=== PATIENT | female | born 1945 | race Caucasian/White ===

== ENCOUNTER 2018-09-10 01:57 | Inpatient (IN) | payer MEDICARE ==
--- NOTE | 2018-09-05 16:27 | HISTORY AND PHYSICAL ---
DATE OF ADMISSION: September 10, 2018 IDENTIFICATION AND CHIEF COMPLAINT Gloria is a 73-year-old woman with chief complaint of right knee pain. HISTORY OF PRESENT ILLNESS Patient has a long-standing history of knee arthritis, progressively painful and debilitating, and refractory to conservative care. Surgery is indicated to relieve symptoms after failure of nonoperative measures. PAST MEDICAL HISTORY 1. Supraventricular tachycardia. 2. Some coronary artery disease. 3. Hypertension, well controlled on medication. 4. Sleep apnea, on CPAP. ALLERGIES CODEINE. CURRENT MEDICATIONS 1. Pioglitazone 30 mg p.o. q. day. 2. Metformin 700 mg p.o. q. day. 3. Estradiol 2 mg half tablet p.o. q.a.m. 4. Sertraline/hydrochlorothiazide 100 mg half tablet p.o. q.a.m. 5. Losartan/hydrochlorothiazide 100/25 one p.o. q. day. 6. Metoprolol ER 25 mg half tablet p.o. b.i.d. 7. Levoxyl 88 mcg p.o. q. day. 8. Tramadol as needed. 9. Simvastatin 40 mg p.o. q. day. 10. Trazodone 50 mg half tablet p.o. at bedtime. 11. Glyburide 1.25 mg as needed for elevated blood sugar. 12. Baby aspirin a day. PAST SURGICAL HISTORY 1. Tubal ligation. 2. Knee scope. 3. Hysterectomy. 4. Spinal fusion. 5. Shoulder repair. SOCIAL HISTORY Negative for tobacco and alcohol use. FAMILY HISTORY Notable for mother with cancer and in multiple relatives on that side. Father with heart failure. REVIEW OF SYSTEMS Otherwise negative. PHYSICAL EXAMINATION GENERAL: Healthy female. HEENT: Normocephalic, atraumatic. NECK: Supple. LUNGS: Clear. HEART: Regular. ABDOMEN: Soft. ORTHOPEDIC: Right knee has crepitus. Effusion is present. Stiff at end range. Gross stability is good. Extensor function intact. Skin is intact. Calves nontender. Neurovascular function intact. LABORATORY DATA Radiographs demonstrate end-stage knee arthritis. ASSESSMENT Right knee degenerative joint disease, progressively painful and debilitating, refractory to conservative. PLAN Per patient request, going to proceed with total knee arthroplasty. Nature of the procedure, risks, benefits, and nonoperative alternatives reviewed. Risks of the procedure include, but are not limited to , major medical or anesthetic complication, infection, neurovascular injury, blood transfusion, stiffness, scarring, fracture, tendon rupture, instability, implant loosening, migration, or failure, persistent or recurrent pain, need for additional surgery, and other unforeseen. She understands and wishes to proceed. Signed permit is placed in the chart. No guarantees are given or implied. EDDI
[2018-09-09 14:02] LABS: INR 1.05
[2018-09-10] VITALS (15 sets, daily range): BP systolic 105–156; BP diastolic 60–97
[~2018-09-10] VITALS: Ht 162.6 cm; Wt 112.5 kg
[~2018-09-10 01:57] MED LIST: ACET500T68 PO; ESTR2TAB26 PO; GLYB1.2524 PO; LEVO88TA43 PO; LOSA-54 PO; METF-51 PO; METO25TA93 PO; PIOG30TA71 PO; POTA20TA94 PO; ROPI0.2530 PO; SERT-184 PO; SIMV-54 PO; TRAM-420 PO; TRAZ50TA34 PO
[2018-09-10] MEDS ORDERED: LIDOCAINE/SOD BICARB 8.4% SYR ID ONE (06:30)
[2018-09-10] MEDS ORDERED: TRANEXAMIC AC 1000 MG/10ML SDV 1,000 MG in DEXTROSE 5% 50 ML BAG 50 ML IV ONE (06:30)
[2018-09-10] MEDS ORDERED: CELECOXIB 200 MG CAP PO ONE (06:30)
[2018-09-10] MEDS ORDERED: PREGABALIN 75 MG CAPSULE PO ONE (06:30)
[2018-09-10] MEDS ORDERED: ceFAZolin(*) 2GM/D5W 50ML 50 ML IVPB ONE (06:30)
[2018-09-10] MEDS ORDERED: NORMOSOL R SOLN(*) 1000 ML BAG 1,000 ML IV PRN ×2 (06:30→09:40)
[2018-09-10] MEDS ORDERED: FAMOTIDINE 20 MG TAB PO ONE (06:30)
[2018-09-10] MEDS ORDERED: cloNIDine EPIDUR INJ 100MCG/ML 40 MCG, ROPIVACAINE 0.5% 20 ML VIAL 25 ML, EPINEPHrine H... INJ ONE (06:30)
[2018-09-10] MEDS ORDERED: ACETAMINOPHEN 500 MG TAB PO ONE (06:30)
[2018-09-10] MEDS ORDERED: MIDAZOLAM 2 MG/2 ML VIAL IVP PRN (06:30)
[2018-09-10] MEDS ORDERED: PROPOFOL EMUL(*) 10MG/ML 20 ML 20 ML ONE (06:56)
[2018-09-10] MEDS ORDERED: LIDOCAINE MPF 1% 5 ML VIAL ONE (06:56)
[2018-09-10] MEDS ORDERED: fentaNYL CITR 100 MCG/2 ML AMP ONE (06:56)
[2018-09-10] MEDS ORDERED: ONDANSETRON 4 MG/2 ML VIAL ONE (06:56)
[2018-09-10] MEDS ORDERED: DEXAMETHASONE SOD 4 MG/ML VIAL ONE (06:56)
[2018-09-10] MEDS ORDERED: VANCOMYCIN 1 GM VIAL ONE (07:02)
[2018-09-10] MEDS ORDERED: KETAMINE HCL 200 MG/20 ML MDV ONE (07:03)
[2018-09-10] MEDS ORDERED: diphenhydrAMINE 25 MG CAP PO PRN (09:40)
[2018-09-10] MEDS ORDERED: diphenhydrAMINE 50 MG/ML VIAL IVP PRN (09:40)
[2018-09-10] MEDS ORDERED: FLUSH 10 ML SYR IVP PRN (09:40)
[2018-09-10] MEDS ORDERED: ZOLPIDEM TARTRATE 5 MG TAB PO PRN (09:40)
[2018-09-10] MEDS ORDERED: PROMETHAZINE 25 MG/ML 1 ML AMP IVP PRN (09:40)
[2018-09-10] MEDS ORDERED: BISACODYL 10 MG SUPP PR PRN (09:40)
[2018-09-10] MEDS ORDERED: BENZOCAINE/MENTHOL 1 EACH LOZG PO PRN (09:40)
[2018-09-10] MEDS ORDERED: ACETAMINOPHEN 325 MG TAB PO PRN (09:40)
--- NOTE | 2018-09-10 10:27 | RADIOLOGY IMAGING REPORT ---
[place] [facility] [place] NAME: Gloria Arredondo : 1945 MR: [id number] V: [id number] EXAM DATE: ORDERING PHYSICIAN: GINA JEREZ TECHNOLOGIST: Location: [facility] Patient: Gloria Arredondo : 1945 Visit/Account:[id number] Date of Sevice: 09/10/2018 KNEE LIMITED RIGHT COMPARISON: None. HISTORY: :POST RIGHT KNEE REPLACEMENT TECHNIQUE: 2 views were obtained. FINDINGS: BONES: Hardware components of a right total knee arthroplasty are situated in anatomic alignment wit hout evidence of loosening, acute fracture or other complication. SOFT TISSUES: There is air in the soft tissues related to the recent surgery. Skin graham are note d anteriorly. OTHER: Negative. IMPRESSION: Total right knee arthroplasty in anatomic alignment without complication, with recent postoperative c hanges. Report Dictated By: Greg Orlando at 09/10/2018 10:20 AM Report E-Signed By: Greg Orlando at 09/10/2018 10:23 AM WSN:[email or web address]
--- NOTE | 2018-09-10 11:07 | LEVENE TKA ---
EVENT DATE: September 10, 2018 SURGEON: Ruddy Milian MD ANESTHESIOLOGIST: [*] ANESTHESIA: General plus spinal. SIZING END BANDER: Ronak Rodriguez PA-C PREOPERATIVE DIAGNOSIS Right knee degenerative joint disease (DJD). POSTOPERATIVE DIAGNOSIS Right knee degenerative joint disease (DJD). PROCEDURE PERFORMED Right total knee arthroplasty. ESTIMATED BLOOD LOSS Minimal. DRAINS None. SPECIMENS None. COMPLICATIONS None apparent. TOURNIQUET TIME 49 minutes. IMPLANTS USED IN[employer] [place] Triathlon knee system, a three-way PS femur, a 4 standard tibial baseplate, a 31] mm universal symmetric all polyethylene patella button and an 11 mm PS tibial tray liner, polyethylene X3.. INDICATIONS Katharina is a 73-year-old woman with intractable pain and disability related to end-stage knee arthritis. Surgery is indicated to relieve symptoms after failure of nonoperative measures. DESCRIPTION OF PROCEDURE The patient was taken to the operating room and placed supine on the operating table. A spinal block was administered by the anesthesiologist. General anesthesia was induced. Antibiotics and TXA were administered IV. The right lower extremity was prepped and draped in the usual sterile fashion for knee surgery. The limb was exsanguinated with an Esmarch bandage. The tourniquet was inflated to 275 mmHg. A midline longitudinal incision was made and carried down through the skin and subcutaneous tissue to the extensor mechanism. A full-thickness flap was developed far enough medially to allow medial parapatellar arthrotomy to be performed. The patella was everted. The knee was brought into a flexed position. The fat pad, anterior horns of the menisci and cruciate ligaments were debrided. Subperiosteal medial release was initiated in a gentle titrated fashion to start to balance the knee. A step drill was used to enter the distal femur. A 10-inch long alignment guide was used to engage the isthmus. Cut was set for 6 degrees of valgusrelative to the anatomic axis. Resection block was applied, pinned and cuts made with an oscillating saw. The AP sizing guide was applied to the distal femoral cut and positioned for 3 degrees of external rotation over the posterior condyles. A size 3 was optimal without risk of notching. The four-in-one cutting block was applied and pinned. Cuts are made with an oscillating saw, beginning with anterior, posterior, posterior chamfer and anterior chamfer cuts respectively. A PS block was applied and centered mediolateral and the bone was removed from the box. The trial femur has nice [id number] fit. Attention was turned to tibial preparation. The extramedullary guide was applied and positioned for varus, valgus, posterior slope and rotation. This was set to resect 9 mm from the laterally intact lateral tibial plateau. It is dropped down a couple of millimeters to ensure an adequate cut. The block was pinned. Extramedullary alignment check was made and the cuts made with an oscillating saw. After osteophyte removal, gaps were balanced and symmetrical. No additional release is required. A size 4 baseplate provides optimal bony coverage without soft tissue overhand. This was inserted along with a trial liner and trial femur. The the knee was brought to full extension. The patella was taken from a starting thickness of 20 to a residual of 14 with a patellar clamp and an oscillating saw. A 31 provides optimal bony coverage without soft tissue overhang. The lug holes were drilled. The patella tracts nicely with a no- touch technique. Final tibial preparation consisted of ensuring appropriate rotational and translational position of the component. The box was reamed and the fin was punched. The surfaces were lavaged. A mix of polymethylmethacrylate was made and the components were cemented in a single stage. After the cement was fully polymerized, the tourniquet was deflated and hemostasis was assured. The wounds were copiously lavaged to remove all loose debris. The PS tibial tray trial fills up the gap ideally, allowing the knee to drop to full extension without hyperextension, providing optimal subcutaneous tissue tension stability. The tray was lavaged and dried and the actual liner was locked into the baseplate. The joint was reduced and the arthrotomy was closed in flexion with #2 Ethibond, subcutaneous tissue with 3-0 Vicryl and the skin with surgical graham. Xeroform was applied followed by a dry, sterile dressing and a compression wrap. The patient was awakened from the anesthesia and taken to the recovery room in stable condition, having tolerated the procedure well. Plan is for standard TKA rehab protocol. [facility]ITAL[facility]
--- NOTE | 2018-09-10 11:08 | Hospitalist Consultation ---
History of Present Illness Requesting Physician Dr. Milian Reason for Consult Medical Management Chief Complaint s/p right total knee replacement History of Present Illness She was admitted s/p right total knee replacement. It is reported the surgery went well and without complication. History Problems: (1) Hypertension Status: Chronic (2) CAD (coronary artery disease) Status: Chronic (3) Depression Status: Chronic (4) Hypothyroidism Status: Chronic (5) LAST (obstructive sleep apnea) Status: Chronic (6) Type 2 diabetes mellitus Status: Chronic Home Meds Reported Medications Glyburide (GLYBURIDE) 1.25 Mg Tablet, 1.25 MG PO QDAY PRN for BLOOD SUGAR >200 09/06/18 Trazodone Hcl (TRAZODONE HCL) 50 Mg Tablet, 25 MG PO QHS 09/06/18 Simvastatin (SIMVASTATIN) 40 Mg Tablet, 40 MG PO HS, TAB 09/06/18 Ropinirole Hcl (ROPINIROLE HCL) 0.25 Mg Tablet, 0.25 MG PO TID 09/06/18 Potassium Chloride (POTASSIUM CHLORIDE) 20 Meq Tab.er.prt, 20 MEQ PO BID 09/06/18 Acetaminophen (TYLENOL EXTRA STRENGTH) 500 Mg Tablet, 500 MG PO BID, TAB 09/06/18 Tramadol Hcl (TRAMADOL HCL) 50 Mg Tablet, 100 MG PO BID, TAB 09/06/18 Levothyroxine Sodium (SYNTHROID) 88 Mcg Tablet, 88 MCG PO QDAY 09/06/18 Metoprolol Tartrate (METOPROLOL TARTRATE) 25 Mg Tablet, 12.5 MG PO BID, TAB 09/06/18 Losartan/Hydrochlorothiazide (LOSARTAN-HCTZ 100-25 MG TAB) 1 Each Tablet, 1 EACH PO QDAY 09/06/18 Sertraline Hcl (SERTRALINE HCL) 50 Mg Tablet, 1 TAB PO QDAY, TAB 09/06/18 Estradiol (ESTRADIOL) 2 Mg Tablet, 2 MG PO DAILY 09/06/18 Metformin HCl (Metformin HCl ER) 500 Mg [id number], 750 MG PO DAILY 09/06/18 Pioglitazone Hcl (PIOGLITAZONE HCL) 30 Mg Tablet, 30 MG PO QDAY 09/06/18 Allergies: Coded Allergies: codeine (Verified Allergy, Mild, 09/03/18) HEART RACES, GETS SWEATY, AND JITTERY Patient History: FH: breast cancer MOTHER, FH: heart failure FATHER, Hx Smoking: No Smoking Status: Never Smoker Caffeine Intake: Soda Caffeine/Cups Per Day: OCC Hx Alcohol Use: No Hx Substance Use Disorder: No Social Drug Use: Never History of IV Drug Use: No Review of Systems All Systems Reviewed/Normal: Yes, Except as Noted Constitutional: Other (sleeping throughout exam) Exam Vital Signs Vital Signs Date Time Temp Pulse Resp B/P (MAP) Pulse Ox O2 Delivery O2 Flow Rate FiO2 09/10/18 10:30 66 12 98 09/10/18 05:30 97.7 156/80 (105) Room Air General Appearance: No Acute Distress, Afebrile, Other (sleeping throughout exam) Cardiovascular: Regular Rate and Rhythm Respiratory: No Respiratory Distress, Clear to Auscultation Assessment and Plan Problems: (1) Status post total right knee replacement Status: Acute Assessment & Plan: She will be placed on Aspirin for DVT prophylaxis. She has no history of DVT or PE. (2) Hypertension Status: Chronic Assessment & Plan: She is on chronic treatment with Losartan and Hy drochlorothiazide. Losartan has been restarted with hold parameters. (3) SVT (supraventricular tachycardia) Status: Resolved Assessment & Plan: Recently seen in ER was in SVT converted with Adenosine. She is on chronic treatment with Toprol XL BID. (4) CAD (coronary artery disease) Status: Chronic Assessment & Plan: She is on chronic treatment with baby ASA and Simvastatin. B davie aspirin to be held while getting adult aspirin. (5) Type 2 diabetes mellitus Status: Chronic Assessment & Plan: She is on chronic treatment with Metformin, Glyburide, and pioglitazone. The Metformin and sliding scale insulin #2 will be started. She will be placed on AC/HS blood glucose monitoring. (6) Hypothyroidism Status: Chronic Assessment & Plan: She is on chronic treatment with Levothyroxine. (7) Depression Status: Chronic Assessment & Plan: She is on chronic treatment with Trazodone. (8) LAST (obstructive sleep apnea) Status: Chronic Assessment & Plan: She does use cpap at night. She did bring her machine to use during admission. Venous Thromboembolism Antithrombotics Is Pt On Any Antithrombotics?: No MARI VALENTIN STAMP PRESSER Sep 10, 2018 11:08
[2018-09-10] MEDS: APAP/HYDROCODONE 325/7.5 TAB PO PRN ×4 (11:24→20:32)
[2018-09-10] MEDS: ceFAZolin(*) 1 GM VIAL 1 GM in NS(*) 0.9% 100 ML ADDVANT BAG 100 ML IVPB SCH (16:18)
[2018-09-10] MEDS: CELECOXIB 200 MG CAP PO SCH (16:18)
[2018-09-10] MEDS: INSULIN HUM LISPRO 100 UN/ML 3 ML VIAL SUBQ PRN ×2 (17:22→20:36)
[2018-09-10] MEDS: traZODone HCL 50 MG TAB PO SCH (20:31)
[2018-09-10] MEDS: SIMVASTATIN 40 MG TAB PO SCH (20:32)
[2018-09-10] MEDS: METOPROLOL SUCC XL 25 MG TABCR PO SCH (20:35)
[2018-09-11] MEDS: ceFAZolin(*) 1 GM VIAL 1 GM in NS(*) 0.9% 100 ML ADDVANT BAG 100 ML IVPB SCH ×2 (00:15→08:59)
[2018-09-11] MEDS: APAP/HYDROCODONE 325/7.5 TAB PO PRN ×4 (01:47→22:53)
[2018-09-11 04:08] VITALS: BP 121/62
[2018-09-11] MEDS: DIAZEPAM 5 MG TAB PO PRN ×2 (05:50→14:52)
[2018-09-11] MEDS: LEVOTHYROXINE SOD 0.088 MG TAB PO SCH (05:50)
[2018-09-11 07:25] VITALS: BP 104/57
--- NOTE | 2018-09-11 08:55 | Hospitalist Progress Note ---
Subjective Progress Notes Subjective She has no complaints this morning. She had no acute events overnight. Patient Complains of: Cardiovascular: No: Chest Pain Respiratory: No: Shortness of Breath Physical Exam Vital Signs Date Time Temp Pulse Resp B/P (MAP) Pulse Ox O2 Delivery O2 Flow Rate FiO2 09/11/18 07:25 97 Nasal Cannula 1.0 09/11/18 07:25 97.6 56 16 104/57 (73) Intake and Output 09/11/18 07:00 Intake Total 2836 ml Output Total 20 ml Balance 2816 ml Intake Oral 780 ml IV Total 2056 ml Output Estimated Blood Loss 20 ml # Voids 4 General Appearance: Alert, Awake, No Acute Distress, Afebrile Neuro: No Gross deficits Cardiovascular: Regular Rate and Rhythm Respiratory: No Respiratory Distress, Clear to Auscultation Psych: Alert & Oriented X3, Appropriate Mood & Affect Assessment and Plan Problems: (1) Status post total right knee replacement Status: Acute Assessment & Plan: She will be placed on Aspirin for DVT prophylaxis. She has no history of DVT or PE. (2) Hypertension Status: Chronic Assessment & Plan: She is on chronic treatment with Losartan and Hydrochlorothiazide. Losartan has been restarted with hold parameters. (3) SVT (supraventricular tachycardia) Status: Resolved Assessment & Plan: Recently seen in ER was in SVT converted with Adenosine. She is on chronic treatment with Toprol XL BID. (4) CAD (coronary artery disease) Status: Chronic Assessment & Plan: She is on chronic treatment with baby ASA and Simvastatin. Baby aspirin to be held while getting adult aspirin. (5) Type 2 diabetes mellitus Status: Chronic Assessment & Plan: She is on chronic treatment with Metformin, Glyburide, and pioglitazone. The Metformin and sliding scale insulin #2 will be started. She will be placed on AC/HS blood glucose monitoring. (6) Hypothyroidism Status: Chronic Assessment & Plan: She is on chronic treatment with Levothyroxine. (7) Depression Status: Chronic Assessment & Plan: She is on chronic treatment with Trazodone. (8) LAST (obstructive sleep apnea) Status: Chronic Assessment & Plan: She does use cpap at night. She did bring her machine to use during admission. Exam Sepsis Risk: No Definite Risk MARI VALENTINP Sep 11, 2018 08:55
[2018-09-11] MEDS: CELECOXIB 200 MG CAP PO SCH ×2 (08:58→16:37)
[2018-09-11] MEDS: ASPIRIN 325 MG TAB PO SCH (08:58)
[2018-09-11] MEDS: SERTRALINE HCL 50 MG TAB PO SCH (08:58)
[2018-09-11] MEDS: METFORMIN HCL 750 MG PO SCH (08:59)
[2018-09-11] MEDS: LOSARTAN POTASSIUM 50 MG TAB PO SCH (09:00)
[2018-09-11] MEDS: METOPROLOL SUCC XL 25 MG TABCR PO SCH ×2 (09:00→20:30)
[2018-09-11] MEDS: MAGNESIUM HYDROXIDE* 30ML UDCP PO PRN ×2 (11:05→20:39)
[2018-09-11 11:06] VITALS: BP 107/58
[2018-09-11 12:06] VITALS: Ht 162.6 cm; Wt 112.5 kg
[2018-09-11 14:58] VITALS: BP 111/61
[2018-09-11] MEDS: INSULIN HUM LISPRO 100 UN/ML 3 ML VIAL SUBQ PRN ×2 (16:41→20:29)
[2018-09-11 19:42] VITALS: BP 124/56
[2018-09-11] MEDS: traZODone HCL 50 MG TAB PO SCH (20:30)
[2018-09-11] MEDS: SIMVASTATIN 40 MG TAB PO SCH (20:30)
[2018-09-11 22:54] VITALS: BP 122/68
[2018-09-12] MEDS: DIAZEPAM 5 MG TAB PO PRN ×2 (00:23→07:05)
[2018-09-12 02:58] VITALS: BP 140/73
[2018-09-12] MEDS: APAP/HYDROCODONE 325/7.5 TAB PO PRN ×2 (05:39→11:09)
[2018-09-12] MEDS: LEVOTHYROXINE SOD 0.088 MG TAB PO SCH (05:39)
[2018-09-12 07:01] VITALS: BP 119/67
[2018-09-12] MEDS ORDERED: HYDR-654 PO (07:42)
[2018-09-12] MEDS: ASPIRIN 325 MG TAB PO SCH (08:19)
[2018-09-12] MEDS: METFORMIN HCL 750 MG PO SCH (08:19)
[2018-09-12] MEDS: CELECOXIB 200 MG CAP PO SCH (08:19)
[2018-09-12] MEDS: LOSARTAN POTASSIUM 50 MG TAB PO SCH (08:19)
[2018-09-12] MEDS: METOPROLOL SUCC XL 25 MG TABCR PO SCH (08:19)
[2018-09-12] MEDS: SERTRALINE HCL 50 MG TAB PO SCH (08:19)
[2018-09-12] MEDS ORDERED: ASPI-757 PO (09:00)
--- NOTE | 2018-09-12 09:48 | Hospitalist Progress Note ---
Subjective Progress Notes Subjective She has no complaints this morning. She had no acute events overnight. Patient Complains of: Cardiovascular: No: Chest Pain Respiratory: No: Shortness of Breath Physical Exam Vital Signs Date Time Temp Pulse Resp B/P (MAP) Pulse Ox O2 Delivery O2 Flow Rate FiO2 09/12/18 08:19 93 09/12/18 08:19 Room Air 09/12/18 07:01 98.2 70 16 119/67 (84) 09/12/18 02:58 2.0 Intake and Output 09/12/18 06:59 Intake Total 587 ml Balance 587 ml Intake Oral 476 ml IV Total 111 ml # Voids 3 # Bowel Movements 1 General Appearance: Alert, Awake, No Acute Distress, Afebrile Neuro: No Gross deficits Cardiovascular: Regular Rate and Rhythm Respiratory: No Respiratory Distress, Clear to Auscultation GI: Soft and Non-Tender Psych: Alert & Oriented X3, Appropriate Mood & Affect Assessment and Plan Problems: (1) Status post total right knee replacement Status: Acute Assessment & Plan: She will be placed on Aspirin for DVT prophylaxis. She has no history of DVT or PE. (2) Hypertension Status: Chronic Assessment & Plan: She is on chronic treatment with Losartan and Hydrochlorothiazide. She will resume her blood pressure medication tomorrow. If she gets dizzy, she will stop medication and call her primary care provider. (3) SVT (supraventricular tachycardia) Status: Resolved Assessment & Plan: Recently seen in ER was in SVT converted with Adenosine. She is on chronic treatment with Toprol XL BID. (4) CAD (coronary artery disease) Status: Chronic Assessment & Plan: She is on chronic treatment with baby ASA and Simvastatin. Baby aspirin to be held while getting adult aspirin. (5) Type 2 diabetes mellitus Status: Chronic Assessment & Plan: She is on chronic treatment with Metformin, Glyburide, and pioglitazone. She was placed on Metformin and sliding scale insulin #2. She was placed on AC/HS blood glucose monitoring. She will resume her usual regimen at home. (6) Hypothyroidism Status: Chronic Assessment & Plan: She is on chronic treatment with Levothyroxine. (7) Depression Status: Chronic Assessment & Plan: She is on chronic treatment with Trazodone. (8) LAST (obstructive sleep apnea) Status: Chronic Assessment & Plan: She does use cpap at night. She did bring her machine to use during admission. Exam Sepsis Risk: No Definite Risk MARI VALENTIN LOGISTICS ACCOUNT MANAGER Sep 12, 2018 09:48
[2018-09-12 11:07] VITALS: BP 122/64
== END 2018-09-12 11:23 | disposition home or self-care (01) | DRG 470 ==
LOC: OR 01:57 → MED 10:25
PROVIDERS: ADMIT Orthopaedic Surgery; ATTEND Orthopaedic Surgery
PROC: 0SRC0J9 Replacement of Right Knee Joint with Synthetic Substitute, Cemented, Open Approach (ICD-10-PCS; principal; 2018-09-10 07:15)
DX: M17.11 Unilateral primary osteoarthritis, right knee (principal); M25.761 Osteophyte, right knee; I25.10 Atherosclerotic heart disease of native coronary artery without angina pectoris; I10 Essential (primary) hypertension; G47.33 Obstructive sleep apnea (adult) (pediatric); F32.9 Major depressive disorder, single episode, unspecified; E03.9 Hypothyroidism, unspecified; E11.9 Type 2 diabetes mellitus without complications; Z88.8 Allergy status to other drugs, medicaments and biological substances; Z90.710 Acquired absence of both cervix and uterus; Z98.1 Arthrodesis status; Z79.84 Long term (current) use of oral hypoglycemic drugs
CPT/HCPCS: 36415; 36416; 82948; 85610; 86850; 86900; 86901; 97161; C1713; C1776; J0171; J0690; J0735; J1100; J1885; J2001; J2250; J2405; J2704; J2795; J3010; J3370; J3490; J7050; J7060